=== PATIENT | male | born 1990 | race Two or more races ===

== ENCOUNTER 2018-10-14 20:55 | Emergency (ER) | payer SELFPAY ==
[~2018-10-14] VITALS: Ht 170.2 cm; Wt 63.5 kg
[2018-10-14] MEDS ORDERED: ACETAMINOPHEN/CODEINE#3 (300/30mg) TAB PO ONE (23:45)
[2018-10-14] MEDS ORDERED: TETANUS-DIPTH-ACEL PERTUSSIS 0.5ML SYRG IM ONE (23:45)
[2018-10-15] MEDS ORDERED: LIDOCAINE W/ EPINEPHRINE 2% INJ 20ML VIAL IJ ONE
[2018-10-15] MEDS ORDERED: LIDOCAINE W/ EPINEPHRINE 1% 20ML VIAL SC ONE
[2018-10-15 00:14] VITALS: BP 139/87
== END 2018-10-15 00:40 | disposition home or self-care (01) ==
LOC: ER 20:55
DX: S81.811A Laceration without foreign body, right lower leg, initial encounter (principal); Z23 Encounter for immunization; W27.8XXA Contact with other nonpowered hand tool, initial encounter; Y93.89 Activity, other specified; Y92.89 Other specified places as the place of occurrence of the external cause; Y99.8 Other external cause status
CPT/HCPCS: 12002; 90471; 90715